=== PATIENT | male | born 1935 | race Two or more races ===

== ENCOUNTER 2016-12-20 12:04 | Inpatient (IN) | payer MEDICARE, BC ==
[~2016-12-20] VITALS: Ht 177.8 cm; Wt 93.0 kg
[~2016-12-20 12:04] MED LIST: ASPI-986; ATEN-42; FINA5TAB11; MICRO10; MULT1TAB; OMEP20CA10; ROSU20TA
[2016-12-20 13:51] LABS: BASOPHILS % 1.2 % (0.0-2.0); EOSINOPHILS % 5.5 % (0.0-5.0); HEMATOCRIT. 43.8 % (42.0-52.0); HEMOGLOBIN. 14.9 g/dL (14.0-18.0); LYMPHOCYTES % 25.2 % (20.0-50.0); MEAN CORPUSCULAR HEMOGLOBIN 29.9 pg (28.0-32.0); MEAN PLATELET VOLUME 7.8 fl (7.4-10.4); MONOCYTES % 7.6 % (2.0-8.0); NEUTROPHILS % 60.5 % (40.0-76.0); PLATELET 141 x1000/uL (130-400); RED BLOOD CELL COUNT 4.98 mill/uL (4.7-6.1); RED CELL DISTRIBUTION WIDTH 14.4 % (11.6-14.6)
[2016-12-20 14:00] LABS: INR 1.1; PROTHROMBIN TIME 11.3 sec
[2016-12-20 14:10] LABS: CARBON DIOXIDE 27 mEq/L (21-32); CHLORIDE 110 mEq/L (98-107); TROPONIN I < 0.02 ng/mL (0.00-0.04)
[2016-12-20] MEDS: AMLODIPINE 5MG TABLET PO SCH ×2 (14:15→21:00)
[2016-12-20] MEDS ORDERED: DOCUSATE SODIUM 100MG CAPSULE PO PRN (15:00)
[2016-12-20] MEDS ORDERED: ONDANSETRON HCL 4MG/2ML VIAL IV PRN (15:00)
[2016-12-20] MEDS ORDERED: ACETAMINOPHEN 325MG TABLET PO PRN (15:00)
[2016-12-20] MEDS: ENOXAPARIN 40MG/0.4ML SYR SUBCUT SCH (15:31)
[2016-12-20 15:54] LABS: CLARITY URINE CLEAR (CLEAR); COLOR URINE YELLOW (YELLOW); KETONES URINE NEGATIVE (NEGATIVE); LEUKOCYTE ESTERASE URINE TRACE (NEGATIVE); NITRITE URINE NEGATIVE (NEGATIVE); OCCULT BLOOD URINE NEGATIVE (NEGATIVE); PH URINE 5.5 (4.5-8.0); PROTEIN URINE NEGATIVE (NEGATIVE); SPECIFIC GRAVITY URINE 1.021 (1.005-1.030)
[2016-12-20 16:07] LABS: *AMPHETAMINES SCREEN URINE NEGATIVE (NEGATIVE); *BARBITURATES SCREEN URINE NEGATIVE (NEGATIVE); *BENZODIAZEPINES SCREEN URINE NEGATIVE (NEGATIVE); *COCAINE SCREEN URINE NEGATIVE (NEGATIVE); CANNABINOID URINE SCREEN NEGATIVE (NEGATIVE); METHADONE URINE SCREEN NEGATIVE (NEGATIVE); OPIATES URINE SCREEN NEGATIVE (NEGATIVE); PHENCYCLIDINE URINE SCREEN NEGATIVE (NEGATIVE)
[2016-12-20] MEDS ORDERED: ZOLPIDEM TARTRATE 5MG TABLET PO PRN (21:00)
[2016-12-20] MEDS ORDERED: HYDRALAZINE 20MG/ML VIAL IV PRN (21:00)
[2016-12-21 06:10] LABS: EOSINOPHILS % 7.1 % (0.0-5.0); HEMATOCRIT. 42.6 % (42.0-52.0); HEMOGLOBIN. 14.7 g/dL (14.0-18.0); LYMPHOCYTES % 35.3 % (20.0-50.0); MEAN CORPUSCULAR HEMOGLOBIN 30.4 pg (28.0-32.0); MEAN CORPUSCULAR VOLUME 88.4 fL (80.0-94.0); MEAN PLATELET VOLUME 8.3 fl (7.4-10.4); MONOCYTES % 9.3 % (2.0-8.0); NEUTROPHILS % 47.3 % (40.0-76.0); PLATELET 137 x1000/uL (130-400); RED BLOOD CELL COUNT 4.83 mill/uL (4.7-6.1); RED CELL DISTRIBUTION WIDTH 14.1 % (11.6-14.6)
[2016-12-21] MEDS: ASPIRIN 81MG EC TABLET PO SCH (08:14)
[2016-12-21] MEDS: AMLODIPINE 5MG TABLET PO SCH ×2 (08:14→20:45)
[2016-12-21] MEDS: LOSARTAN POTASSIUM 25 MG TABLET PO SCH (11:48)
[2016-12-21] MEDS: ENOXAPARIN 40MG/0.4ML SYR SUBCUT SCH (15:06)
[2016-12-21] MEDS: OMEPRAZOLE 20MG CAPSULE EXTENDED RELEASE PO SCH (20:45)
[2016-12-22 06:20] LABS: EOSINOPHILS % 6.3 % (0.0-5.0); HEMATOCRIT. 43.6 % (42.0-52.0); HEMOGLOBIN. 14.8 g/dL (14.0-18.0); LYMPHOCYTES % 26.6 % (20.0-50.0); MEAN CORPUSCULAR HEMOGLOBIN 29.9 pg (28.0-32.0); MEAN CORPUSCULAR VOLUME 87.9 fL (80.0-94.0); MONOCYTES % 10.1 % (2.0-8.0); PLATELET 136 x1000/uL (130-400); RED BLOOD CELL COUNT 4.97 mill/uL (4.7-6.1); RED CELL DISTRIBUTION WIDTH 14.3 % (11.6-14.6)
[2016-12-22] MEDS: OMEPRAZOLE 20MG CAPSULE EXTENDED RELEASE PO SCH (06:42)
[2016-12-22] MEDS: LOSARTAN POTASSIUM 25 MG TABLET PO SCH (08:19)
[2016-12-22] MEDS: AMLODIPINE 5MG TABLET PO SCH ×2 (08:19→20:44)
[2016-12-22] MEDS: ASPIRIN 81MG EC TABLET PO SCH (08:19)
[2016-12-22] MEDS: ENOXAPARIN 40MG/0.4ML SYR SUBCUT SCH (14:27)
[2016-12-23 07:53] LABS: BASOPHILS % 0.8 % (0.0-2.0); EOSINOPHILS % 7.9 % (0.0-5.0); HEMATOCRIT. 43.1 % (42.0-52.0); HEMOGLOBIN. 14.7 g/dL (14.0-18.0); LYMPHOCYTES % 24.6 % (20.0-50.0); MEAN CORPUSCULAR VOLUME 88.1 fL (80.0-94.0); MEAN PLATELET VOLUME 8.2 fl (7.4-10.4); MONOCYTES % 9.4 % (2.0-8.0); NEUTROPHILS % 57.3 % (40.0-76.0); PLATELET 136 x1000/uL (130-400); RED BLOOD CELL COUNT 4.89 mill/uL (4.7-6.1); RED CELL DISTRIBUTION WIDTH 14.5 % (11.6-14.6)
[2016-12-23] MEDS: FAMOTIDINE 20MG TABLET PO SCH ×2 (08:16→21:04)
[2016-12-23] MEDS: LOSARTAN POTASSIUM 25 MG TABLET PO SCH (08:16)
[2016-12-23] MEDS: AMLODIPINE 5MG TABLET PO SCH ×2 (08:17→21:05)
[2016-12-23] MEDS: ASPIRIN 81MG EC TABLET PO SCH (08:17)
[2016-12-23] MEDS ORDERED: LORAZEPAM 0.5MG TABLET PO NR ×2 (11:00)
[2016-12-23] MEDS: ENOXAPARIN 40MG/0.4ML SYR SUBCUT SCH (15:07)
[2016-12-24 06:45] LABS: BASOPHILS % 0.9 % (0.0-2.0); EOSINOPHILS % 6.6 % (0.0-5.0); HEMATOCRIT. 43.3 % (42.0-52.0); HEMOGLOBIN. 14.8 g/dL (14.0-18.0); LYMPHOCYTES % 30.8 % (20.0-50.0); MEAN CORPUSCULAR HEMOGLOBIN 30.1 pg (28.0-32.0); MEAN PLATELET VOLUME 8.4 fl (7.4-10.4); MONOCYTES % 9.4 % (2.0-8.0); NEUTROPHILS % 52.3 % (40.0-76.0); PLATELET 135 x1000/uL (130-400); RED BLOOD CELL COUNT 4.92 mill/uL (4.7-6.1); RED CELL DISTRIBUTION WIDTH 14.3 % (11.6-14.6)
[2016-12-24] MEDS: AMLODIPINE 5MG TABLET PO SCH ×2 (09:00→21:21)
[2016-12-24] MEDS: LOSARTAN POTASSIUM 25 MG TABLET PO SCH (09:00)
[2016-12-24] MEDS: ASPIRIN 81MG EC TABLET PO SCH (09:00)
[2016-12-24] MEDS: FAMOTIDINE 20MG TABLET PO SCH ×2 (09:00→21:21)
[2016-12-24] MEDS ORDERED: LIDOCAINE HCL 1% 20ML VIAL (Pyxis) INJ ONE (12:47)
[2016-12-24] MEDS ORDERED: GENTAMICIN SULF 40MG/ML 2ML VIAL ONE (12:47)
[2016-12-24] MEDS ORDERED: IODIXANOL 320MG/ML 100 ML BOTTLE IV ONE (12:50)
[2016-12-24] MEDS ORDERED: CEFAZOLIN 1000MG PREMIX 100 ML IV ONE (12:51)
[2016-12-24] MEDS ORDERED: FENTANYL CITRATE/PF 50MCG/ML 2ML VIAL ONE (13:31)
[2016-12-24] MEDS ORDERED: MIDAZOLAM HCL 5 MG/5 ML VIAL ONE (13:31)
[2016-12-24] MEDS ORDERED: DIPHENHYDRAMINE 50MG/ML VIAL ONE (13:33)
[2016-12-24] MEDS: ENOXAPARIN 40MG/0.4ML SYR SUBCUT SCH (15:47)
[2016-12-24] MEDS ORDERED: HYDROCODONE/ACETAMINOPHEN 5/325MG TABLET PO PRN (21:45)
[2016-12-24] MEDS: CEFAZOLIN 1000MG PREMIX 50 ML IV SCH (23:09)
[2016-12-25] MEDS: CEFAZOLIN 1000MG PREMIX 50 ML IV SCH (06:14)
[2016-12-25] MEDS: FAMOTIDINE 20MG TABLET PO SCH (08:18)
[2016-12-25] MEDS: LOSARTAN POTASSIUM 25 MG TABLET PO SCH (08:18)
[2016-12-25] MEDS: AMLODIPINE 5MG TABLET PO SCH (08:18)
[2016-12-25] MEDS: ASPIRIN 81MG EC TABLET PO SCH (08:18)
[2016-12-25 12:29] VITALS: BP 138/80
== END 2016-12-25 13:15 | disposition home or self-care (01) | DRG 243 ==
LOC: SUPCPDRO 12:38 → ER 13:32 → 3WST 13:44 → ENRESERV 18:51
PROVIDERS: ADMIT Specialist; ATTEND Specialist
PROC: 0JH606Z Insertion of Pacemaker, Dual Chamber into Chest Subcutaneous Tissue and Fascia, Open Approach (ICD-10-PCS; principal; 2016-12-24)
PROC: 02H63JZ Insertion of Pacemaker Lead into Right Atrium, Percutaneous Approach (ICD-10-PCS; 2016-12-24)
PROC: 02HK3JZ Insertion of Pacemaker Lead into Right Ventricle, Percutaneous Approach (ICD-10-PCS; 2016-12-24)
PROC: B51V1ZZ Fluoroscopy of Other Veins using Low Osmolar Contrast (ICD-10-PCS; 2016-12-24)
DX: I44.1 Atrioventricular block, second degree (principal); I13.0 Hypertensive heart and chronic kidney disease with heart failure and stage 1 through stage 4 chronic kidney disease, or unspecified chronic kidney disease; I42.9 Cardiomyopathy, unspecified; E78.5 Hyperlipidemia, unspecified; I44.7 Left bundle-branch block, unspecified; I49.9 Cardiac arrhythmia, unspecified; N18.9 Chronic kidney disease, unspecified; N28.1 Cyst of kidney, acquired; T50.995A Adverse effect of other drugs, medicaments and biological substances, initial encounter; Z79.82 Long term (current) use of aspirin; Z79.899 Other long term (current) drug therapy; Z82.49 Family history of ischemic heart disease and other diseases of the circulatory system; Z87.442 Personal history of urinary calculi; Z90.49 Acquired absence of other specified parts of digestive tract; Y92.89 Other specified places as the place of occurrence of the external cause
CPT/HCPCS: 33208; 36415; 71010; 74181; 75820; 76770; 80048; 80061; 80305; 81001; 83036; 83735; 83880; 84443; 84484; 85025; 85610; 93005; 93306; 99285; A4565; A9500; C1785; C1892; C1893; C1898; J0690; J1200; J1580; J1650; J2250; J3010; J3490; J7050; Q9967

== ENCOUNTER → 2020-08-24 | Outpatient (CLI) | payer MEDICARE, BC ==
[~2020-08-24] MED LIST changes: -OMEP20CA10; +OMEP20CA14; -ROSU20TA; +ROSU20TA2
[2020-08-24 12:02] LABS: CHLORIDE 112 mEq/L (98-107)
== END | disposition home or self-care (01) ==
LOC: LAB 11:16
PROVIDERS: ATTEND Specialist
DX: E78.5 Hyperlipidemia, unspecified (principal)
CPT/HCPCS: 36415; 80053

== ENCOUNTER 2025-01-04 11:24 | Emergency (ER) | payer MEDICARE, BC ==
[~2025-01-04] VITALS: Ht 170.2 cm; Wt 82.0 kg
[~2025-01-04 11:24] MED LIST changes: -MICRO10
[2025-01-04 11:28] VITALS: TEMP 36.5
== END 2025-01-04 11:38 ==
LOC: ER 11:24
DX: I46.9 Cardiac arrest, cause unspecified (principal); Z90.49 Acquired absence of other specified parts of digestive tract; Z95.0 Presence of cardiac pacemaker; Z79.899 Other long term (current) drug therapy
CPT/HCPCS: 82962; 99285